=== PATIENT | male | born 1975 | race Caucasian/White ===

== ENCOUNTER → 2018-03-25 | Outpatient (CLI) | payer OTHER ==
[~2018-03-25] MED LIST: LISI-788 PO; MULT-351 PO
== END | disposition home or self-care (01) ==
LOC: C.LAB 13:22
PROVIDERS: ATTEND Orthopaedic Surgery
DX: M79.641 Pain in right hand (principal)

== ENCOUNTER → 2018-06-24 | Outpatient (CLI) | payer OTHER ==
[2018-06-24 10:51] LABS: TRANSFERRIN 213 mg/dl (200-360)
[2018-06-28 09:04] LABS: ANA SCREEN TC 249X NEGATIVE (NEGATIVE); ANTI-SS-A <1.0 NEG AI (<1.0 NEG); ANTI-SS-B <1.0 NEG AI (<1.0 NEG); ANTICARDIOLIPID AB IGA <11 APL (< = 11); COMPLEMENT C4** TC 44982E 27 MG/DL (15-53); MICROSOMAL AB <1 IU/ML (<9); PARVOVIRUS IgM INDEX 0.2 (<0.9)
== END | disposition home or self-care (01) ==
LOC: C.LAB 09:38
PROVIDERS: ATTEND Internal Medicine Rheumatology
DX: R76.8 Other specified abnormal immunological findings in serum (principal); M65.9 Synovitis and tenosynovitis, unspecified; E79.0 Hyperuricemia without signs of inflammatory arthritis and tophaceous disease; M79.643 Pain in unspecified hand; M47.819 Spondylosis without myelopathy or radiculopathy, site unspecified